=== PATIENT | male | born 1990 | race Hispanic/Latino ===

== ENCOUNTER 2023-06-07 19:55 | Emergency (ER) | payer SELFPAY ==
[2023-06-07 20:00] VITALS: BP 142/107
--- NOTE | 2023-06-07 22:25 | ED.GENMED ---
History of Present Illness
General
Chief Complaint: Skin Surface Trauma
Source: patient and other (Via language line)
Exam Limitations: none
Time Seen by Provider: 06/07/23 20:50
Travel History
Have you had any contact with someone who has COVID-19?: No
Do you have any symptoms of coronavirus? Fever > 100 degrees, chills, cough, shortness of breath, sore throat, loss of taste or smell, muscle aches, or headache?: No
History of Present Illness
History of Present Illness:
Patient is a 32-year-old male who cut his right hand with a nail at work. He is right-hand dominant. He denies any other injuries. He is unsure of his last tetanus. Mild discomfort to the area but denies any actual pain. He denies any numbness
tingling to his fingers.
Review of Systems
Review of Systems
Allergies reviewed?: Yes
All Other Systems: ROS reviewed and negative except as documented in HPI and ROS
Constitutional: Reports no symptoms
Musculoskeletal: Reports other (Right hand laceration)
Skin: Reports no symptoms
Hematologic/Lymphatic: Reports no symptoms
Psychiatric: Reports no symptoms
Phy Exam
General Physical Exam
General Presentation: well appearing
General age: appears stated age
General Skin: warm and dry
General Habitus: normal
General Mental: alert
General Hydration: appears well hydrated
Neurological Exam
Neurological Exam: alert
Musculoskeletal Exam
Musculoskeletal Exam: other (Right upper extremity strong pulses patient with 2 cm linear laceration to webspace between second and third fingers (prox phlaynx region ) through to subcutaneous tissue no bony tenderness only, full flexion extension
normal distal sensation )
Skin Exam
Skin Exam: normal color and warm/dry
Psychiatric Exam
Psychiatric Exam: normal mood/affect
Course
Orders/Labs/Results
Orders:
Orders
06/07/23 22:25
Hand, Right 3 View [CR Hand - Right Min 3 Views] Urgent
Comment:
Reason For Exam: trauma
Vital Signs
Initial and Last Documented VS:
Initial Vital Signs
Temp Pulse Resp BP Pulse Ox
98.3 F 94 20 142/107 100
06/07/23 20:00 06/07/23 20:00 06/07/23 20:00 06/07/23 20:00 06/07/23 20:00
Last Documented Vital Signs
Temp Pulse Resp BP Pulse Ox
98.3 F 94 20 142/107 100
06/07/23 20:00 06/07/23 20:00 06/07/23 20:00 06/07/23 20:00 06/07/23 20:00
Procedures
Laceration Closure
Right Dorsal Hand:
Status of Wound: clean
Size of Wound in cm: 2
Description of Wound Edges: sharp
Preparation: cleaned with saline
Anesthesia: 1% Lidocaine
Revision/Debridement: routine- no revision
Type of Closure: single layer closure and interrupted sutures
Skin Closure Material: 5-0 nylon
Number of sutures: 4
MDM/Problems Addressed
Differential Diagnosis Includes:
Not limited to fracture, laceration, tendon injury
MDM/Problems Addressed:
Patient cut his right hand with a nail prior to arrival mild swelling to the area laceration is approximate 2 cm to the dorsal aspect of the right hand just below the first and second proximal phalanx region. Wound was sutured as documented wound
is through to subcutaneous tissue only no tendon visible no tendon deficit no fracture. Tetanus updated. Full history reviewed with language line and wound care/ d/c instructions reviewed with language line.
*Radiology
Radiology exam reviewed: preliminary read by ED provider
*Pulse Oximetry
Patient hypoxic: no
*Critical Care Note
Total Time (30-74mins, 75-104mins- exclusive of procedures): Not Applicable
ED Attending Note
-
Portions of this chart may have been created with voice recognition software.� Occasional wrong word or��sound alike� substitutions may have occurred due to the inherent limitations of voice recognition software.
Discharge Plan
Departure
Patient Disposition: Home (Routine Discharge)
Date of Disposition: 06/07/23
Time of Disposition: 22:48
Patient with high blood pressure during this ER visit?: Yes
Condition: Fair
Covid-19: Not Applicable
Discharge Problem:
Hand laceration
Instructions: Laceration Repair With Stitches (DC), BLOOD PRESSURE
Prescriptions:
No Action
No Current Medications
0
Referrals:
Bhupendra Steven MD [Family Provider] -
Activity Restrictions/Additional Instructions:
Keep laceration clean and dry for 24 hours after 24 hours wash with soap water pat dry apply small layer of antibiotic likely to the area. See family doctor in 2 days for wound check and sutures are to be removed in 10-12 days. Return if any
signs of infection increased pain swelling redness drainage fever chills.
Interventions
Interventions:
*Risk Screen - Suicide Last Done: 06/07/23 20:08
*General Assessment Last Done: 06/07/23 20:08
*Neglect/Abuse Screening Last Done: 06/07/23 20:08
ED- Fall Risk Assessment Last Done: 06/07/23 20:08
*ED COVID-19 Vaccine History Last Done: 06/07/23 20:08
ED-Skin Assessment Last Done: 06/07/23 22:13
Discharge Date and Time
Print Language: POLISH
[2023-06-07] MEDS: ADACEL 0.5 ML IM (23:10)
[2023-06-07 23:20] VITALS: BP 134/86
== END 2023-06-07 23:21 | disposition home or self-care (01) ==
LOC: EMR 19:55
PROVIDERS: EMERGENCY PHYSICIAN Emergency Medicine; FAMILY PHYSICIAN Internal Medicine Gastroenterology
DX: S61.411A Laceration without foreign body of right hand, initial encounter (principal); W45.0XXA Nail entering through skin, initial encounter; R03.0 Elevated blood-pressure reading, without diagnosis of hypertension; Z23 Encounter for immunization
CPT/HCPCS: 99283; 12001; 90471; 73130; 90715

== ENCOUNTER 2023-06-20 15:33 | Emergency (ER) | payer SELFPAY ==
[2023-06-20 15:39] VITALS: BP 136/103
--- NOTE | 2023-06-20 16:29 | ED.GENMED ---
History of Present Illness
General
Chief Complaint: Wound Check/Suture Removal
Source: patient
Exam Limitations: none
Time Seen by Provider: 06/20/23 16:29
Nursing documentation reviewed up to this point in time: agreed with
Travel History
Have you had any contact with someone who has COVID-19?: No
Do you have any symptoms of coronavirus? Fever > 100 degrees, chills, cough, shortness of breath, sore throat, loss of taste or smell, muscle aches, or headache?: No
History of Present Illness
History of Present Illness:
Patient is a 32-year-old male who presents to the ER for suture removal. Patient was seen here June 06 and had 4 sutures placed to his right dorsal hand. He has no complaints
Review of Systems
Review of Systems
Allergies reviewed?: Yes
All Other Systems: ROS reviewed and negative except as documented in HPI and ROS
Constitutional: Reports no symptoms
Skin: Reports other (laceration to right hand )
Neurological: Reports no symptoms
Psychiatric: Reports no symptoms
Phy Exam
General Physical Exam
General Presentation: no apparent distress
General age: appears stated age
General Skin: warm and dry
General Habitus: normal
General Mental: alert
General Hydration: appears well hydrated
Neurological Exam
Neurological Exam: alert and oriented x3
Musculoskeletal Exam
Musculoskeletal Exam: other (Right hand with healing lacerations with sutures in place to the dorsal aspect of the hand as per the first and second proximal phalanx region)
Skin Exam
Skin Exam: normal color and warm/dry
Psychiatric Exam
Psychiatric Exam: normal mood/affect
Course
Vital Signs
Initial and Last Documented VS:
Initial Vital Signs
Temp Pulse Resp BP Pulse Ox
98.6 F 99 16 136/103 99
06/20/23 15:39 06/20/23 15:39 06/20/23 15:39 06/20/23 15:39 06/20/23 15:39
Last Documented Vital Signs
Temp Pulse Resp BP Pulse Ox
98.6 F 99 16 136/103 99
06/20/23 15:39 06/20/23 15:39 06/20/23 15:39 06/20/23 15:39 06/20/23 15:39
Procedures
Other
Indication for procedure:: Suture removal
Procedure completed by: myself
Additional Procedure:
4 simple sutures removed from wound
MDM/Problems Addressed
Differential Diagnosis Includes:
not limited to: suture removal
MDM/Problems Addressed:
4 simple sutures were removed patient's wound is without any evidence of infection no dehiscence
*Critical Care Note
Total Time (30-74mins, 75-104mins- exclusive of procedures): Not Applicable
ED Attending Note
-
Portions of this chart may have been created with voice recognition software.� Occasional wrong word or��sound alike� substitutions may have occurred due to the inherent limitations of voice recognition software.
Discharge Plan
Departure
Patient Disposition: Home (Routine Discharge)
Date of Disposition: 06/20/23
Time of Disposition: 16:36
Patient with high blood pressure during this ER visit?: Yes
Discharge Problem:
Visit for suture removal
Instructions: Stitches Removal
Prescriptions:
No Action
No Current Medications
0
Activity Restrictions/Additional Instructions:
Return if any worsening of symptoms
Interventions
Interventions:
*General Assessment Last Done: 06/20/23 15:39
*ED COVID-19 Vaccine History Last Done: 06/20/23 15:39
ED-Skin Assessment Last Done: 06/20/23 16:14
Discharge Date and Time
Print Language: INDONESIAN
[2023-06-20 17:05] VITALS: BP 128/94
[2023-06-20 17:06] VITALS: BP 128/94
== END 2023-06-20 17:07 | disposition home or self-care (01) ==
LOC: EMR 15:33
PROVIDERS: EMERGENCY PHYSICIAN Emergency Medicine
DX: Z48.02 Encounter for removal of sutures (principal)
CPT/HCPCS: 99281